=== PATIENT | male | born 1960 | race Caucasian/White ===

== ENCOUNTER 2018-10-13 18:51 | Emergency (ER) | payer BC ==
[2018-10-13 19:12] VITALS: BP 166/94
--- NOTE | 2018-10-13 19:15 | UC ---
Lower Extremity/Ankle HPI - HPI Summary HPI Summary: pt presents for eval of RLE. Pt states 7 days ago was on diving board when 90 pound lab rammed head into mid calf. Pt states has large swollen area. Since this time this has improved. Continue with mild TTP pt has developed ecchymosis to his ankle with mild edema. no ankle pain. no posterior calf pain. no knee pain. no open wounds. Pt has intermittently taken analgesia with good effect. Wanted to get checked related to ecchymosis at ankle. Pt not on anticoagulation meds reviewed - History of Current Complaint Chief Complaint: UCLowerExtremity Stated Complaint: LEG INJURY Time Seen by Provider: 10/13/18 19:03 Hx Obtained From: Patient Pain Intensity: 8 - Allergies/Home Medications Allergies/Adverse Reactions: Allergies Allergy/AdvReac Type Severity Reaction Status Date / Time shellfish derived Allergy Severe Airway Verified 10/13/18 19:12 Obstruction Home Medications: Home Medications Omeprazole CAP (NF) [Prilosec CAP* 20 MG] 20 mg PO DAILY 10/13/18 [History Confirmed 10/13/18] PMH/Surg Hx/FS Hx/Imm Hx Previously Healthy: Yes - Surgical History Surgical History: Yes Surgery Procedure, Year, and Place: left shoulder - Family History Known Family History: Positive: Non-Contributory - Social History Occupation: Employed Full-time Lives: With Family Alcohol Use: Occasionally Substance Use Type: None Smoking Status (MU): Never Smoked Tobacco Review of Systems All Other Systems Reviewed And Are Negative: Yes Constitutional: Positive: Negative Skin: Positive: Other - right medial calf Physical Exam - Summary Physical Exam Summary: Vital Signs Reviewed: Yes A+Ox3, no distress Eyes: Conjunctiva Clear ENT: Hearing grossly normal neck: supple Respiratory: Positive: No respiratory distress, No accessory muscle use Cardiovascular: skin color reflect adequate perfusion 2+ DP, PT Musculoskeletal Exam: HAMILTON x 4 without difficulty + SLE + flex/ext knee, ankle pt with mild discomfort mid distal medial calf - mild focal edema and tenderness, no crepitus, no deformity Neurological: Positive: Alert, ambulatory without difficulty Psychological: Positive: Normal Response To Family Skin: Positive: no rash, pt with mild edema and ecchymosis medial aspect ankle - no point tendernesss of malleoli Vital Signs: Initial Vital Signs Temp 99.0 F 10/13/18 19:06 Pulse 69 10/13/18 19:06 Resp 18 10/13/18 19:06 BP 166/94 10/13/18 19:06 Pulse Ox 97 10/13/18 19:06 Diagnostics - Radiology No standard instances Radiology Interpretation Completed By: Radiologist - Patient Name: KATLYN FARIA Medical Record#: [id number] Ordering Physician: Gaviota Mcneill MD Acct.#: [id number] : 1960 Age: 58 Sex: M Location: [facility] Exam Date: 10/13/181919 ADM Status: DEP ER Order Information: TIBIA FIBULA RIGHT Accession Number: [id number] CPT: 74526 INDICATION: Right lower leg injury. TECHNIQUE: 2 views of the right lower leg were obtained. FINDINGS: There is soft tissue swelling anterior to the proximal mid diaphysis of the tibia. The bones are normal alignment. No fracture is seen. IMPRESSION: SOFT TISSUE SWELLING, NO FRACTURE IS SEEN. R0 Preliminary Imaging Read R0 < Electronically signed by Fabian Parada MD in OV> 10/14/18 0742 Dictated By: Fabian Parada MD Dictated Date/Time: 10/14/18 0742 Transcribed Date/Time: 0740 Copy to: CC:Gaviota Mcneill MD; No Primary Care Phys,NOPCP Imaging - [facility] Imaging - [facility] Imaging - [facility] [address] [address] ph ([phone]) ph ([phone]) ph ([phone]) This report is only to be considered final once signed by the Provider(s) as displayed in the "< Electronically Signed by >" field (s). Absence of a signature indicates the report is in a draft status and still needs to be finalized. In the event this document was created by someone other than the signing Provider, the individual initiating the document will be listed in the "Entered by:" or "Dictated by:" ayala. 1 of 1 Lower Extremity Course/Dx - Course Course Of Treatment: pt wth contusin to right calf s/p dog running into him occured 10 days ago pt with mild intermittent pain with palpation pt with ecchymosis in ankle - suspect related to gravity and resolutio will check imaging - suspect neg kayt crutches if limping heat stretch motrin/apap elevate will give disc - lives out of town BP elevated - ho same - Differential Dx/Diagnosis Provider Diagnosis: Contusion of right calf Discharge - Sign-Out/Discharge Documenting (check all that apply): Patient Departure All imaging exams completed and their final reports reviewed: Yes - Discharge Plan Condition: Stable Disposition: HOME Patient Education Materials: Contusion in Adults (ED), Hematoma (ED) Referrals: [facility] [Provider Group] No Primary Care Phys,NOPCP [Primary Care Provider] - Additional Instructions: -Okay to alternate ibuprofen (Advil, Motrin) 600mg and Tylenol every 3 hours for pain or fever. Take with food. Do NOT take for more than 4-5 days. - okay to apply ice (wrapped in a towel) 20 minutes at a time, 2-3 times a day for discomfort - slow, gentle stretching execises (pumping your ankle up and down, bend/ straighten your knee are important to stretch your muscles - okay to wear and katy wrap for comfort and support - contact your doctor or sports medicine office if you have ongoing symptoms, increased pain, or any other questions or concerns As discussed, your radiograph was reviewed by the provider that treated you tonight. It will be read by a radiologist tomorrow morning. If there is a finding other than that discussed with you today, you will receive a call from a care provider. - Billing Disposition and Condition Condition: STABLE Disposition: Home
== END 2018-10-13 20:07 | disposition home or self-care (01) ==
LOC: UCEAST 18:51
DX: S80.11XA Contusion of right lower leg, initial encounter (principal); W54.1XXA Struck by dog, initial encounter; Y92.095 Swimming-pool of other non-institutional residence as the place of occurrence of the external cause; R03.0 Elevated blood-pressure reading, without diagnosis of hypertension; Z91.013 Allergy to seafood
CPT/HCPCS: 99202; G0463